=== PATIENT | female | born 1990 | race Caucasian/White ===

== ENCOUNTER 2020-10-06 15:38 | Emergency (ER) | payer OTHER ==
[2020-10-06] MEDS ORDERED: cefTRIAXone\\ROCEPHIN 1 GM VIAL ONE (16:42)
[2020-10-06] MEDS ORDERED: Lidocaine 1% PF 5 ML VIAL ONE (16:42)
== END 2020-10-06 17:05 | disposition home or self-care (01) ==
LOC: CSHERS 15:38
DX: T81.41XA Infection following a procedure, superficial incisional surgical site, initial encounter (principal); N61.0 Mastitis without abscess; K21.9 Gastro-esophageal reflux disease without esophagitis
CPT/HCPCS: 96372; 99283; J0696